=== PATIENT | male | born 1960 | race Caucasian/White ===

== ENCOUNTER → 2016-10-30 | Outpatient (CLI) | payer BC, OTHER ==
[~2016-10-30] MED LIST: OMEP40CA2 PO; TIZA4CAP PO; ULTR50TA PO; VALI10TA PO; VOLT1GEL2 TD; [UNRECOGNIZED DRUG - OTHER] PO
[2016-10-30 14:52] LABS: BLOOD UREA NITROGEN 14 MG/DL (7-18); CREATININE FOR GFR 0.94 MG/DL (0.70-1.30); GLUCOSE, FASTING 88 MG/DL (70-105)
[2016-10-30 14:53] LABS: ANION GAP 9 MEQ/L (8-16); CALCIUM LEVEL 9.5 MG/DL (8.5-10.1); CARBON DIOXIDE LEVEL 29 MEQ/L (21-32); CHLORIDE LEVEL 104 MEQ/L (98-107); GLOMERULAR FILTRATION RATE > 60.0 (>56); POTASSIUM SERUM 4.1 MEQ/L (3.5-5.1); SODIUM LEVEL 142 MEQ/L (136-145)
== END ==
LOC: M LAB 13:27
PROVIDERS: ATTEND Ophthalmology
DX: Z01.818 Encounter for other preprocedural examination (principal); H11.052 Peripheral pterygium, progressive, left eye

== ENCOUNTER → 2016-11-13 | Day surgery (SDC) | payer BC, OTHER ==
[~2016-11-13] VITALS: Ht 180.3 cm; Wt 86.2 kg
[~2016-11-13] MED LIST changes: +D5W/0.2% SODIUM CHLORIDE 250 ML IV SCH; +FISH1000 PO; +LIDOCAINE 2% W/EPIN INJ 20ML **PRES FREE XX ONE; +LIDOCAINE 4% INJ 5 ML AMP XX ONE; +LIDOCAINE W/EPINEPHRINE 1% 20ML VIAL As Ordered ONE; +MIDAZOLAM INJ 2 MG/2 ML VIAL (J2250) As Ordered ONE; +MITOMYCIN XX ONE; +NACL XX ONE; +POVIDONE-IODINE 5% OPHTH PREP SOL 30ML As Ordered ONE; +SYSTSOL14 OU; +TOBRADEX OPHTH OINT 3.5 GM As Ordered ONE; +TOBRADEX OPHTH OINT 3.5 GM XX ONE; +TOBRAMYCIN INJ 80 MG/2 ML VIAL (J3260) As Ordered ONE; +fentaNYL 100 MCG/2 ML INJECTION (J3010) As Ordered ONE; +mitoMYcin (FOR OPHTHALMIC USE) 0.3MG/1ML SYRINGE IN NaCl (J7999) XX ONE
[2016-11-13 14:05] VITALS: BP 130/70
--- NOTE | 2016-11-14 09:05 | RO ---
DATE OF PROCEDURE: 11/13/2016 PREOPERATIVE DIAGNOSIS: Pterygium left eye. POSTOPERATIVE DIAGNOSIS: Pterygium left eye. OPERATIVE PROCEDURE: Excision of pterygium left eye with use of off-label non-Food and Drug Administration (FDA) approved mitomycin C. SURGEON: Cam Millan DO ARM REST BUILDER: None. ANESTHESIA: Local with monitored anesthesia care (MAC), peribulbar anesthesia with 1% lidocaine and epinephrine, approximately 0.5 mL. FINDINGS: None. ESTIMATED BLOOD LOSS: 0. DRAINS: Zero. SPECIMENS: Pterygium left eye sent to pathology. REPLACED: None. COMPLICATIONS: None. INDICATIONS FOR PROCEDURE: Chronic left eye irritation, redness, and occasional intermittent blurred vision. DESCRIPTION OF PROCEDURE: The correct patient was identified in the postanesthesia care unit (PACU). Consents were reviewed. The patient was seen and examined, and the correct side was identified and marked. Patient received 4% lidocaine to the left eye. Patient was then transferred to the operating room. At that time, the eye was prepped and draped in a sterile fashion. Tegaderm was used to isolate the upper and lower eyelashes, and a wire lid speculum was placed in the eye. Additional 4% lidocaine was placed on the eye. Using a 3 mL syringe with a 30-gauge needle, 1% lidocaine with epinephrine was placed subconjunctivally, approximately 0.5 mL, and then spread with a Q-Tip. .12 forceps and Davonte scissors were used to make an incision adjacent to the limbus at the superior edge of the pterygium and was carefully excised away cornea.. The specimen was removed and sent to pathology. Using the Davonte scissors and .12 forceps, the fibrotic fragments were dissected and removed from the cornea. Fibrovascular sub-Tenon tissue was retracted from the overlying conjunctiva and carefully excised from the conjunctival defect that was created. Using a [place] blade and balanced salt solution (BSS) on the cornea, any remaining adhesions were carefully scraped away from the nasal cornea and the cornea was found to be smooth. At that time, light Wet-Field cautery was performed, and there was minimal bleeding. The area was then dried with Weck lopez and using a separate set of smooth forceps, mitomycin C 3 was carefully injected into the edge of the conjunctiva for a total administrated dose of 0.1 mL. Then it was vigorously washed with three bottles of BSS. The area was then dried with Weck lopez. A tobramycin-soaked collagen shield was then placed over the cornea. The wire lid speculum was removed and TobraDex ointment was placed in the eye and a patch and shield was placed over the eye. Patient was discharged to the recovery room in a stable condition. YURI
== END | disposition home or self-care (01) ==
LOC: M SDC 11:22
PROVIDERS: ATTEND Ophthalmology
DX: H11.002 Unspecified pterygium of left eye (principal); M54.2 Cervicalgia; R06.83 Snoring; M12.9 Arthropathy, unspecified; M54.5 Low back pain; N40.0 Benign prostatic hyperplasia without lower urinary tract symptoms; Z96.662 Presence of left artificial ankle joint
CPT/HCPCS: 65420; 88304; J2250; J3010; J3260; J7315

== ENCOUNTER → 2017-06-19 | Day surgery (SDC) | payer BC, OTHER ==
[~2017-06-19] VITALS: Ht 180.3 cm; Wt 86.2 kg
[~2017-06-19] MED LIST changes: -D5W/0.2% SODIUM CHLORIDE 250 ML IV SCH; +EPINEPHrine INJ 1 MG/ML 1ML AMP As Ordered ONE; +GLYCOPYRROLATE INJ 0.2 MG/ML 2 ML VIAL As Ordered ONE; +HYDROmorphone HCL 2 MG/ML 1ML VIAL (J1170) As Ordered ONE; +LIDOCAINE 1% MDV 20ML VIAL As Ordered ONE; +LIDOCAINE 1% MDV 20ML VIAL ONE; +LIDOCAINE 1% MDV INJ 50 ML VIAL As Ordered ONE; +LIDOCAINE 2% INJ 100 MG/5 ML SDV (FOR ANES.) As Ordered ONE; -LIDOCAINE 2% W/EPIN INJ 20ML **PRES FREE XX ONE; -LIDOCAINE 4% INJ 5 ML AMP XX ONE; -LIDOCAINE W/EPINEPHRINE 1% 20ML VIAL As Ordered ONE; +LR 1,000 ML IV ONE; +LR 1,000 ML IV SCH; +MEPERIDINE INJ 25 MG/ML VIAL (J2175) As Ordered ONE; +MEPERIDINE INJ 25 MG/ML VIAL (J2175) IV ONE; -MITOMYCIN XX ONE; +MORPHINE 2 MG/ML 1ML SYRINGE IV PRN; -NACL XX ONE; +NEOSTIGMINE 1MG/ML 5 ML SYRINGE (J2710) As Ordered ONE; +ONDANSETRON 4MG/2ML VIAL (J2405) As Ordered ONE; +ONDANSETRON 4MG/2ML VIAL (J2405) IV PRN; +OXYC1TAB23 PO; +PERCOCET 5MG/325MG TAB PO PRN; -POVIDONE-IODINE 5% OPHTH PREP SOL 30ML As Ordered ONE; +PROPOFOL 200 MG/20 ML VIAL As Ordered ONE; +ROCURONIUM BROMIDE 50 MG/5 ML VIAL/SYRINGE As Ordered ONE; +ROPIvacaine 0.5% 30 ML INJECTION (J2795) ONE; -TOBRADEX OPHTH OINT 3.5 GM As Ordered ONE; -TOBRADEX OPHTH OINT 3.5 GM XX ONE; -TOBRAMYCIN INJ 80 MG/2 ML VIAL (J3260) As Ordered ONE; +dexameTHASONE 10 MG/1 ML VIAL PRES.FREE (J1100) ONE; +dexameTHASONE 4 MG/ML 1ML VIAL (J1100) As Ordered ONE; +ePHEDrine SULFATE 25 MG/5 ML(5MG/ML) SYRINGE As Ordered ONE; +fentaNYL 100 MCG/2 ML INJECTION (J3010) IV PRN; -mitoMYcin (FOR OPHTHALMIC USE) 0.3MG/1ML SYRINGE IN NaCl (J7999) XX ONE
[2017-06-19] MEDS: fentaNYL 100 MCG/2 ML INJECTION (J3010) IV PRN ×2 (07:23→07:26)
[2017-06-19] MEDS: MIDAZOLAM INJ 2 MG/2 ML VIAL (J2250) IV PRN ×2 (07:24→07:25)
[2017-06-19 14:00] VITALS: BP 144/72
--- NOTE | 2017-06-19 18:48 | RO ---
DATE OF PROCEDURE: 06/19/2017 PREOPERATIVE DIAGNOSES: 1. Left shoulder rotator cuff tear including subscapularis. 2. Left shoulder superior labral tear versus long head biceps tendinitis. 3. Left shoulder impingement. 4. Left shoulder glenohumeral osteoarthritis (OA). POSTOPERATIVE DIAGNOSES: 1. Left shoulder rotator cuff tear including subscapularis. 2. Left shoulder long head biceps tendinopathy. 3. Left shoulder mild osteoarthritis (OA) with degenerative labral tearing. PROCEDURE: 1. Left shoulder arthroscopy with arthroscopic rotator cuff repair of the subscapularis. 2. Left shoulder open subpectoral biceps tenodesis. 3. Left shoulder labral and rotator cuff debridement (supraspinatus) and chondroplasty. SURGEON: Charles Waterman MD DISEASE CASE MANAGER: STARLA Reddy ANESTHESIA: General with preoperative nerve block. IMPLANTS: Arthrex 4.75 mm PEEK SwiveLock anchor times one and Arthrex proximal tenodesis button times one. CLOSURE: Monocryl and nylon. HISTORY OF PRESENT ILLNESS: Nelson is a 57-year-old male who has had worsening left shoulder pain over the past few months, but going on for over a year. On physical exam, he was found to have weakness in his subscapularis as well as his supraspinatus. MRI revealed very high grade partial articular tear of the subscapularis with early medial subluxation of the long head biceps tendon as well as tendinopathy in the supraspinatus and some mild osteoarthritis. Given Nelson's failure to respond to nonoperative treatment, we discussed surgery and he wished to proceed with surgery. We discussed the risks and benefits of left shoulder arthroscopic rotator cuff repair, open subpectoral biceps tenodesis, labral debridement and chondroplasty, and all other indicated procedures as dictated by intraoperative findings. He understood that the risks included, but were not limited to bleeding, infection, damage to a adjacent neurovascular structure, deep vein thrombosis (DVT)/pulmonary embolism (PE), stiffness, weakness, progression of arthritis, failure to alleviate pain, retear, cosmetic deformity of biceps, failure to return to desired activity level, failure to alleviate pain and need for additional surgery. Written informed consent obtained. DESCRIPTION OF PROCEDURE: The patient was identified in the preoperative holding area and the left shoulder signed by myself. He had a preoperative interscalene nerve block. He was brought to the operating room and placed supine on a well padded OR table with a beanbag. Venodyne boots bilateral lower extremities. Appropriate IV antibiotics within 1 hour of incision. Following induction of general anesthesia, he was placed into the right side down lateral decubitus position on the beanbag with an axillary roll. All bony prominences were well padded. He was secured to the OR table. The left arm was then prepped draped in a normal sterile fashion. Prior to incision, a time out was performed in which myself and all OR staff confirmed the patient's name, medical record number, date of , and the correct side, site and procedure. The left shoulder was insufflated with 20 mL of Lactated Ringer's with a spinal needle. Standard posterior viewing portal made with an 11 blade and a 30 degree arthroscope introduced into the joint atraumatically. 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 There as degenerative tearing in the anterior and superior labrum. There was thickening of the long head of the biceps tendon. There was an obvious high grade articular sided tear of the subscapularis. Using the posterior lever pit push maneuver, the entire subscap tendon lifted off of the lesser tuberosity. The tendon had not retracted to the degree that the MRI suggested. There was partial tearing of the undersurface of the supraspinatus. Posterior rotator cuff intact. An anterior working portal was localized with a spinal needle to give a good trajectory at the lesser tuberosity. Arthrex cannula brought in through the rotator interval. In order to proceed with arthroscopic subscapularis repair, I performed a tenotomy of the long head of the biceps tendon just off of the superior labrum. This was done with a meniscal punch. Tendon fragments were removed with the shaver. Superior and anterior labrum were then debrided with the shaver. Chondroplasty to the humeral head and glenoid to remove one unstable flap of cartilage from the glenoid. No full thickness defects. Again, grade 2 in the posterior humeral head and grade 1-2 in the glenoid centrally. I then proceeded with open subpectoral biceps tenodesis. I made a 3 cm incision with a 15 blade just lateral to the axilla, centered over the pectoralis major tendon. Electrocautery for superficial dissection. Superficial fascia opened carefully with Metzenbaum scissors. After opening the biceps fascia, blunt dissection down to the anterior humerus. Long head of the biceps tendon was easily identified and isolated with a right angled clamp. After confirming the muscle tendon junction, I was able to retrieve the tendon through the incision. I did not visualize the musculocutaneous nerve during this case. The Arthrex proximal tenodesis button kit was opened. FiberLoop was used to create a running locking whipstitch through the long head of the biceps tendon. Excess tendon was trimmed and sent to pathology per protocol. The FiberWire sutures were then loaded through the button per routine. The spade tip drill bit was then used to create a unicortical socket within the bicipital groove approximately 1 cm proximal to the lower edge of the pectoralis major tendon. Retractors were used to protect the soft tissues. Irrigation used to remove bony debris. The tenodesis button was then delivered through the drill hole on its technical support technician. The sutures were toggled, which flipped the button, and reduced the tendon to the anterior humeral cortex. There was appropriate tension on the tendon. I then used the free needle from the kit to pass the suture back through the tendon and locked the construct in place. Sutures were tied by hand. Excess suture trimmed and discarded. The incision was then extensively irrigated with normal saline. Biceps fascia was closed with #2-0 Vicryl suture and then #2-0 Vicryl for subcuticular closure and a running #3-0 Monocryl. At the end of the case, that incision had Steri-Strips. We then returned to our arthroscopic rotator cuff repair. The scope was placed back through the posterior portal and the cautery device was used to release soft tissue around the anterior and superior aspect of the subscapularis. Coracoplasty was not necessary. The shaver was used to remove 2-3 mm of articular cartilage off the lesser tuberosity and then on the bur setting to minimally decorticate and create a bony bleeding bed. An accessory superolateral portal was localized with a spinal needle and Arthrex cannula brought in through that. The tissue grasper was used to grab the subscapularis and confirmed that this was a high grade partial articular tear, but no significant retraction. Initially, I thought this would need two anchors, but this was be amenable to a single anchor. The Arthrex FastPass Scorpion was used to pass a FiberTape suture through the upper half of the subscapularis tendon. Sutures were passed a second time for a horizontal mattress type stitch. FiberTape sutures were then retrieved out the anterior inferior portal and loaded through a 4.75 mm self tapping SwiveLock anchor. The sutures were tensioned and the eyelet was malleted in and then the anchor was seated by hand. There was excellent fixation in the lesser tuberosity and this nicely reduced the subscapularis tendon. Arthroscopic grass cutter was used. Eyelet suture discarded. I then used the switching stick to probe the repair and this was a nice tight repair of the subscapularis. The posterior lever push was then repeated and there was no lifting off of the lesser tuberosity. I then performed a gentle rotator cuff debridement of the undersurface of the supraspinatus. There were no full thickness tears. The scope was placed in the subacromial space and a bursectomy performed with the radiofrequency device and the shaver. Surprisingly, there was only minor fraying of the very superficial bursal fibers of the supraspinatus. I used a switching stick and was unable to palpate any full thickness or high grade partial defects. A spinal needle was placed through the subacromial space through the area of maximal partial tearing. The scope was placed back into the joint and that area near the spinal needle was inspected and there was no high grade partial tearing. With the scope back in the subacromial space, I made the determination that it would be inappropriate to convert this into a full thickness tear and then repair it back down. So, we did a debridement of an approximately 25% partial thickness tear at the supraspinatus. The shoulder was internally and externally rotated. No additional tearing was seen. No acromioplasty was needed. The shoulder was then irrigated and drained. I injected 10 mL of lidocaine along the open subpectoral incision and then placed Steri-Strips. A bulky sterile bandage was applied. All counts were correct times two. COMPLICATIONS: None. DISPOSITION: The patient was placed into a sling and bolster. The patient was extubated and transferred to the postanesthesia care unit (PACU) in stable condition. Plan is for the patient to be non weightbearing on the left upper with a sling for the next six weeks. He will followup in 10 days for suture removal. Physical therapy is going to start in four weeks. Postoperative restrictions and pain medication instructions were given to his .
== END | disposition home or self-care (01) ==
LOC: M SDC 05:52
PROVIDERS: ATTEND Orthopaedic Surgery
DX: M75.112 Incomplete rotator cuff tear or rupture of left shoulder, not specified as traumatic (principal); M75.22 Bicipital tendinitis, left shoulder; M19.012 Primary osteoarthritis, left shoulder; M54.2 Cervicalgia; M54.5 Low back pain; R51 Headache; R06.83 Snoring; N40.0 Benign prostatic hyperplasia without lower urinary tract symptoms; Z96.652 Presence of left artificial knee joint
CPT/HCPCS: 23430; 29822; 29827; 88304; 96374; 96375; C1713; J0690; J1100; J1170; J2175; J2250; J2405; J2710; J2795; J3010

== ENCOUNTER → 2019-01-13 | Outpatient (REF) | payer MEDICARE, OTHER ==
[~2019-01-13] MED LIST changes: -EPINEPHrine INJ 1 MG/ML 1ML AMP As Ordered ONE; -GLYCOPYRROLATE INJ 0.2 MG/ML 2 ML VIAL As Ordered ONE; -HYDROmorphone HCL 2 MG/ML 1ML VIAL (J1170) As Ordered ONE; -LIDOCAINE 1% MDV 20ML VIAL As Ordered ONE; -LIDOCAINE 1% MDV 20ML VIAL ONE; -LIDOCAINE 1% MDV INJ 50 ML VIAL As Ordered ONE; -LIDOCAINE 2% INJ 100 MG/5 ML SDV (FOR ANES.) As Ordered ONE; -LR 1,000 ML IV ONE; -LR 1,000 ML IV SCH; -MEPERIDINE INJ 25 MG/ML VIAL (J2175) As Ordered ONE; -MEPERIDINE INJ 25 MG/ML VIAL (J2175) IV ONE; -MIDAZOLAM INJ 2 MG/2 ML VIAL (J2250) As Ordered ONE; -MORPHINE 2 MG/ML 1ML SYRINGE IV PRN; -NEOSTIGMINE 1MG/ML 5 ML SYRINGE (J2710) As Ordered ONE; -ONDANSETRON 4MG/2ML VIAL (J2405) As Ordered ONE; -ONDANSETRON 4MG/2ML VIAL (J2405) IV PRN; -PERCOCET 5MG/325MG TAB PO PRN; -PROPOFOL 200 MG/20 ML VIAL As Ordered ONE; -ROCURONIUM BROMIDE 50 MG/5 ML VIAL/SYRINGE As Ordered ONE; -ROPIvacaine 0.5% 30 ML INJECTION (J2795) ONE; -dexameTHASONE 10 MG/1 ML VIAL PRES.FREE (J1100) ONE; -dexameTHASONE 4 MG/ML 1ML VIAL (J1100) As Ordered ONE; -ePHEDrine SULFATE 25 MG/5 ML(5MG/ML) SYRINGE As Ordered ONE; -fentaNYL 100 MCG/2 ML INJECTION (J3010) As Ordered ONE; -fentaNYL 100 MCG/2 ML INJECTION (J3010) IV PRN
== END ==
LOC: M LAB LCGH 10:30
PROVIDERS: ATTEND Surgery
DX: K82.8 Other specified diseases of gallbladder (principal)